=== PATIENT | male | born 1960 | race Caucasian/White ===

== ENCOUNTER 2016-09-17 02:41 | Emergency (ER) | payer MEDICARE, MEDICAID ==
[~2016-09-17] VITALS: Ht 180.3 cm; Wt 63.5 kg
[~2016-09-17 02:41] MED LIST: GABAPENTIN600 MG ORAL; LISINOPRIL10 MG ORAL; LORAZEPAM1 MG ORAL; NORCO 10-325 T1 EACH ORAL; PRIMADONE PO; SYMBICORT 16010.2 G1 IH; TRAMADOL HCL50 MG ORAL; VENTOLIN HFA18 GM INH
[2016-09-17] MEDS ORDERED: DuoNeb 0.5-3(2.5)mg/3ml neb HHN ONE ×2 (02:45→04:00)
[2016-09-17 03:00] VITALS: BP 155/84
[2016-09-17 03:06] LABS: EOSINOPHILS % (AUTO) 12.7 % (0.0-3.0); LYMPHOCYTES % (AUTO) 33.5 % (20.0-45.0); MEAN CORPUSCULAR HGB CONC 32.3 G/DL (32.0-36.0); MEAN CORPUSCULAR VOLUME 99 FL (80-99); MEAN PLATELET VOLUME 8.9 FL (6.5-10.1); MONOCYTES % (AUTO) 9.9 % (1.0-10.0); NEUTROPHILS % (AUTO) 41.9 % (45.0-75.0); PLATELET COUNT 263 K/UL (150-450); RED BLOOD COUNT 4.34 M/UL (4.70-6.10); WHITE BLOOD COUNT 7.2 K/UL (4.8-10.8)
[2016-09-17 03:27] LABS: ALANINE AMINOTRANSFERASE 12 U/L (3-41); ALBUMIN/GLOBULIN RATIO 1.7 (1.0-2.7); ANION GAP 10 (5-15); ASPARTATE AMINO TRANSFERASE 11 U/L (5-40); CALCIUM 9.6 mg/dL (8.6-10.2); CARBON DIOXIDE 26 mEQ/L (20-30); CHLORIDE 99 mEQ/L (98-107); CREATININE 0.7 mg/dL (0.7-1.2); GLOMERULAR FILTRATION RATE > 60 mL/min (>60); HEMOLYSIS 6; POTASSIUM 4.6 mEQ/L (3.4-4.9); SODIUM 135 mEQ/L (135-145); TOTAL PROTEIN 6.4 g/dL (6.6-8.7)
[2016-09-17 03:28] LABS: TROPONIN I < 0.30 ng/mL (<=0.30)
[2016-09-17] MEDS ORDERED: Solu-MEDROL 125mg Inj IVP ONE (03:30)
[2016-09-17] MEDS ORDERED: PREDNISONE20 MG ORAL (03:53)
[2016-09-17] MEDS ORDERED: Metoclopramide 10mg/2ml Inj IVP ONE (04:45)
[2016-09-17 05:22] VITALS: BP 149/75
[2016-09-17 05:42] LABS: TROPONIN I < 0.30 ng/mL (<=0.30)
[2016-09-17 06:30] VITALS: BP 148/72
--- NOTE | 2016-09-17 07:44 | Emergency Room Report ---
History of Present Illness General Chief Complaint: Dyspnea/Respdistress Source: Patient Present Illness HPI Patient 56-year-old male who presented after increased difficulty breathing. Patient had a gradual onset of symptoms. Patient was noted to have improvement after breathing treatment. patient prior history of COPD. He reported having some tightness which was similar to previous episodes. Patient had been taking a steroid inhaler as well as albuterol. He denied prior cardiac history. Patient denied any fever. Nonproductive cough. Allergies: Coded Allergies: MORPHINE (Verified Allergy, Unknown, 09/11/15) Patient History Past Medical History: see triage record Reviewed Nursing Documentation: PMH: Agreed, PSxH: Agreed Nursing Documentation-PMH Hx Hypertension: Yes Hx Asthma: Yes Hx Neurological Problems: Yes - CRANIOTOMY,TUMOR ,[employer]OR SHUNT REMOVAL Hx Seizures: Yes Review of Systems All Other Systems: negative except mentioned in HPI Physical Exam Vital Signs Date Time Temp Pulse Resp B/P Pulse Ox O2 Delivery O2 Flow Rate FiO2 09/17/16 02:17 97.5 57 16 155/84 99 Room Air Sp02 EP Interpretation: reviewed, normal General Appearance: normal inspection, well appearing, alert, GCS 15, mild distress Head: atraumatic ENT: normal ENT inspection, hearing grossly normal, normal voice Neck: normal inspection, full range of motion, supple, no bony tend Respiratory: normal inspection, lungs clear, normal breath sounds, no respiratory distress, no retraction, no wheezing Cardiovascular #1: regular rate, rhythm, no edema Gastrointestinal: normal inspection, normal bowel sounds, non tender, soft, no guarding, no hernia Genitourinary: no CVA tenderness Musculoskeletal: normal inspection, back normal, normal range of motion Neurologic: normal inspection, alert, oriented x3, responsive, drill presser III-XII nml as tested, speech normal Psychiatric: normal inspection, judgement/insight normal, mood/affect normal Skin: normal inspection, normal color, no rash Medical Decision Making Diagnostic Impression: Primary Impression: COPD exacerbation ER Course Patient presented for shortness of breath.Differential included but was not limited to anemia, pneumonia, pneumothorax, myocardial infarction, pericardial effusion, congestive heart failure, acidosis. Laboratory testing was notable for negative troponin. Rhythm strip interpreted by me showed normal sinus rhythm with a rate in the 60s without PVCs or ectopy EKG interpreted by me showed sinus bradycardia with a rate in the [address] changes. There is incomplete bundle-branch block noted. The patient was given breathing treatments with improvement in his respiratory status. Patient stated he felt much better. The patient was given IV Reglan for headache. He was advised followup with neurosurgery for further evaluation as he's had previous surgery for a LITER[employer]UC[employer] shunt removal The patient was noted to have negative cardiac enzymes X 2, laboratory testing was otherwise unremarkable.The patient is advised to follow up with primary care doctor in 1-2 days. Patient is advised to return if any worsening condition or if any changes in status that are concerning.The patient given prescription for oral steroids. Labs Test 09/17/16 02:40 09/17/16 05:00 White Blood Count 7.2 K/UL (4.8-10.8) Red Blood Count 4.34 M/UL (4.70-6.10) Hemoglobin 13.9 G/DL (14.2-18.0) Hematocrit 43.0 % (42.0-52.0) Mean Corpuscular Volume 99 FL (80-99) Mean Corpuscular Hemoglobin 32.0 PG (27.0-31.0) Mean Corpuscular Hemoglobin Concent 32.3 G/DL (32.0-36.0) Red Cell Distribution Width 12.0 % (11.6-14.8) Platelet Count 263 K/UL (150-450) Mean Platelet Volume 8.9 FL (6.5-10.1) Neutrophils (%) (Auto) 41.9 % (45.0-75.0) Lymphocytes (%) (Auto) 33.5 % (20.0-45.0) Monocytes (%) (Auto) 9.9 % (1.0-10.0) Eosinophils (%) (Auto) 12.7 % (0.0-3.0) Basophils (%) (Auto) 2.0 % (0.0-2.0) Sodium Level 135 mEQ/L (135-145) Potassium Level 4.6 mEQ/L (3.4-4.9) Chloride Level 99 mEQ/L (98-107) Carbon Dioxide Level 26 mEQ/L (20-30) Anion Gap 10 (5-15) Blood Urea Nitrogen 12 mg/dL (7-23) Creatinine 0.7 mg/dL (0.7-1.2) Estimat Glomerular Filtration Rate > 60 mL/min (>60) Glucose Level 93 mg/dL (74-106) Calcium Level 9.6 mg/dL (8.6-10.2) Total Bilirubin < 0.2 mg/dL (0.0-1.2) Aspartate Amino Transf (AST/SGOT) 11 U/L (5-40) Alanine Aminotransferase (ALT/SGPT) 12 U/L (3-41) Alkaline Phosphatase 89 U/L (40-129) Pro-B-Type Natriuretic Peptide 13 pg/mL (0-125) Total Protein 6.4 g/dL (6.6-8.7) Albumin 4.1 g/dL (3.5-5.2) Globulin 2.3 g/dL Albumin/Globulin Ratio 1.7 (1.0-2.7) Troponin I < 0.30 ng/mL (<=0.30) Chest X-Ray Diagnostic Results Chest X-Ray Diagnostic Results : Chest X-Ray Ordered: Yes # of Views/Limited/Complete: 1 View Indication: Shortness of Breath EP Interpretation: Yes Interpretation: no consolidation, no effusion, no acute cardiopulmonary disease, other - emphysema Impression: No acute disease Interpreting ER Provider: Electronically signed by Dr. Ez Dupree M.D. Last Vital Signs Date Time Temp Pulse Resp B/P Pulse Ox O2 Delivery O2 Flow Rate FiO2 09/17/16 06:30 98.0 57 18 148/72 100 Room Air Status: improved Disposition: HOME, SELF-CARE Condition: Stable Scripts Prednisone* (PREDNISONE*) 20 Mg Tablet 40 MG ORAL DAILY, #10 TAB Prov: Ez Dupree 09/17/16 Referrals: NON PHYSICIAN (PCP) Patient Instructions: Chronic Obstructive Pulmonary Disease Exacerbation Ez Dupree Sep 17, 2016 07:44
--- NOTE | 2016-09-17 11:03 | Diagnostic Imaging Report ---
Indication: SOB Technique: One view of the chest Comparison: none Findings: Lungs and pleural spaces are clear. Heart size is normal. Impression: No acute process This agrees with the preliminary interpretation provided by the emergency room physician
--- NOTE | 2016-09-17 18:12 | Cardiology Report ---
APPROVED REPORT EKG Measurement Heart [id number] Sinus bradycardia Otherwise normal ECG
== END 2016-09-17 06:30 | disposition home or self-care (01) ==
LOC: EDBD 02:41 → EMR 03:20
DX: J44.1 Chronic obstructive pulmonary disease with (acute) exacerbation (principal); I10 Essential (primary) hypertension; Z88.6 Allergy status to analgesic agent
CPT/HCPCS: 36415; 71010; 80053; 83880; 84484; 85025; 93005; 94640; 94664; 96374; 96375; 99284; J2765; J2930; J7620